=== PATIENT | female | born 1960 | race Caucasian/White ===

== ENCOUNTER 2021-01-09 08:21 | Day surgery (SDC) | payer BC, SELFPAY ==
[~2021-01-09] VITALS: Ht 170.2 cm; Wt 60.8 kg
[2021-01-09] MEDS ORDERED: fentaNYL CITRATE/PF 100 MCG/2 ML AMP ONE ×2 (09:55→11:39)
[2021-01-09] MEDS ORDERED: BENZOCAINE 20% 0.5mL UD SPRAY MM ONE (09:55)
[2021-01-09] MEDS ORDERED: MIDAZOLAM HCL 5 MG/5 ML VIAL ONE ×2 (09:55→11:21)
[2021-01-09 12:15] VITALS: BP_SYST 96
== END 2021-01-09 13:15 | disposition home or self-care (01) ==
LOC: SDS 08:21
PROVIDERS: ATTEND Surgery
DX: Z12.11 Encounter for screening for malignant neoplasm of colon (principal); K57.30 Diverticulosis of large intestine without perforation or abscess without bleeding; K31.7 Polyp of stomach and duodenum; K21.9 Gastro-esophageal reflux disease without esophagitis; E03.9 Hypothyroidism, unspecified; Z98.890 Other specified postprocedural states; Z79.899 Other long term (current) drug therapy; Z20.828 Contact with and (suspected) exposure to other viral communicable diseases
CPT/HCPCS: 36415; 43239; 45378; 87081; 88305; 88312; 88313; G0378; J2250; J3010; J7030; U0003